=== PATIENT | female | born 1935 | race Caucasian/White ===

== ENCOUNTER → 2017-02-06 | Outpatient (CLI) | payer MEDICARE, BC ==
[~2017-02-06] MED LIST: ASPI81 PO; ATOR10 PO; BONI150T PO; MUCI600T PO; SYNT25TA; TIMO0.255 LEFT EYE
[2017-02-06 12:45] LABS: AUTOMATED NEUTROPHIL # 2.6 TH/MM3 (1.8-7.7); BASOPHIL # 0.1 TH/MM3 (0-0.2); BASOPHIL % 1.2 % (0.0-2.0); EOSINOPHIL # 0.2 TH/MM3 (0-0.4); HEMATOCRIT 39.1 % (35.0-46.0); HEMO FLAGS DIFF FINAL; LYMPH % 25.1 % (9.0-44.0); LYMPHOCYTE # 1.1 TH/MM3 (1.0-4.8); MEAN CELL VOLUME 85.4 FL (80.0-100.0); MEAN CORPUSCULAR HEMOGLOBIN 29.5 PG (27.0-34.0); MEAN CORPUSCULAR HGB CONC 34.6 % (32.0-36.0); MONO % 10.7 % (0.0-8.0); PLATELET COUNT 383 TH/MM3 (150-450); RED BLOOD COUNT 4.58 MIL/MM3 (4.00-5.30); RED CELL DISTRIBUTION WIDTH 14.7 % (11.6-17.2); WHITE BLOOD COUNT 4.5 TH/MM3 (4.0-11.0)
[2017-02-06 13:00] LABS: ANION GAP 6 MEQ/L (5-15); AST (GOT) 31 U/L (15-37); BICARBONATE 28.8 MEQ/L (21.0-32.0); BLOOD UREA NITROGEN 15 MG/DL (7-18); CHLORIDE 107 MEQ/L (98-107); GLOMERULAR FILTRATION RATE 68 ML/MIN (>89); GLUCOSE,FASTING 92 MG/DL (74-99); POTASSIUM 3.8 MEQ/L (3.5-5.1); SODIUM (NA) 142 MEQ/L (136-145)
[2017-02-06 13:02] LABS: BLOOD, URINE NEG (NEG); GLUCOSE,URINE NEG (NEG); KETONE, URINE NEG (NEG); MUCUS URINE FEW /lpf (OCC); NITRITE,URINE NEG (NEG); PH, URINE 6.5 (5.0-8.5); SQUAMOUS EPITHELIAL CELL URINE 6 /hpf (0-5); URINE COLOR YELLOW (YELLW/STRAW)
[2017-02-06 13:21] LABS: ALKALINE PHOSPHATASE 79 U/L (45-117); ALT (GPT) 28 U/L (10-53); LDL CHOLESTEROL 92 MG/DL (0-99)
== END ==
LOC: ELAB 09:39
PROVIDERS: ATTEND Obstetrics & Gynecology
DX: R53.81 Other malaise (principal); R53.83 Other fatigue; E03.9 Hypothyroidism, unspecified; E55.9 Vitamin D deficiency, unspecified; L03.119 Cellulitis of unspecified part of limb; D84.9 Immunodeficiency, unspecified; D72.810 Lymphocytopenia; I10 Essential (primary) hypertension; I97.2 Postmastectomy lymphedema syndrome; R82.90 Unspecified abnormal findings in urine; Z79.2 Long term (current) use of antibiotics; Z13.220 Encounter for screening for lipoid disorders; Z13.0 Encounter for screening for diseases of the blood and blood-forming organs and certain disorders involving the immune mechanism
CPT/HCPCS: 36415; 80053; 80061; 81001; 82306; 84443; 85025; 87086

== ENCOUNTER → 2017-08-26 | Outpatient (CLI) | payer MEDICARE, BC ==
[2017-08-26 12:00] LABS: AUTOMATED NEUTROPHIL # 2.5 TH/MM3 (1.8-7.7); BASOPHIL % 0.8 % (0.0-2.0); EOSINOPHIL # 0.2 TH/MM3 (0-0.4); EOSINOPHIL % 3.6 % (0.0-4.0); HEMO FLAGS DIFF FINAL; LYMPH % 29.6 % (9.0-44.0); LYMPHOCYTE # 1.3 TH/MM3 (1.0-4.8); MEAN CORPUSCULAR HGB CONC 33.7 % (32.0-36.0); PLATELET COUNT 440 TH/MM3 (150-450); RED BLOOD COUNT 4.77 MIL/MM3 (4.00-5.30); WHITE BLOOD COUNT 4.3 TH/MM3 (4.0-11.0)
[2017-08-26 12:20] LABS: ALT (GPT) 38 U/L (10-53); ANION GAP 5 MEQ/L (5-15); AST (GOT) 36 U/L (15-37); BICARBONATE 29.7 MEQ/L (21.0-32.0); BLOOD UREA NITROGEN 11 MG/DL (7-18); CHLORIDE 106 MEQ/L (98-107); GLOMERULAR FILTRATION RATE 75 ML/MIN (>89); GLUCOSE,FASTING 91 MG/DL (74-99); POTASSIUM 3.6 MEQ/L (3.5-5.1); SODIUM (NA) 141 MEQ/L (136-145)
[2017-08-26 12:23] LABS: ALKALINE PHOSPHATASE 105 U/L (45-117); TOTAL BILIRUBIN ADULT 0.7 MG/DL (0.2-1.0)
== END ==
LOC: ELAB 09:16
PROVIDERS: ATTEND Internal Medicine Infectious Disease
DX: L03.90 Cellulitis, unspecified (principal); I97.2 Postmastectomy lymphedema syndrome; I10 Essential (primary) hypertension; D84.9 Immunodeficiency, unspecified; Z79.2 Long term (current) use of antibiotics
CPT/HCPCS: 36415; 80053; 85025